=== PATIENT | female | born 1955 | race Caucasian/White ===

== ENCOUNTER 2016-12-31 12:32 | Emergency (ER) | payer OTHER ==
[2016-12-31] MEDS ORDERED: SODIUM CHLORIDE 0.9% 1,000 ML IV ONE (14:35)
[2016-12-31] MEDS ORDERED: LACTATED RINGERS 1,000 ML IV STA (14:35)
[2016-12-31] MEDS ORDERED: KETOROLAC 60 MG/2 ML VIAL IVP STA (15:57)
[2016-12-31] MEDS ORDERED: KETOROLAC 30 MG/ML VIAL ONE (15:57)
[2016-12-31] MEDS ORDERED: DOXYCYCLINE 100 MG TABLET PO STA (16:11)
[2016-12-31] MEDS ORDERED: DOXYCYCLINE 100 MG TABLET PO ONE (16:15)
[2016-12-31] MEDS ORDERED: HYDROcod/ACETAM 5/325 MG TABLET PO STA (17:10)
[2016-12-31] MEDS ORDERED: HYDROcod/ACETAM 5/325 MG TABLET ONE (17:12)
== END 2016-12-31 17:28 | disposition home or self-care (01) ==
DX: J18.9 Pneumonia, unspecified organism (principal); E86.0 Dehydration; B34.9 Viral infection, unspecified; R55 Syncope and collapse
CPT/HCPCS: 71020; 80053; 83690; 93005; 93010; 96361; 96374; 99283; 99284; A9270

== ENCOUNTER 2018-11-10 17:25 | Emergency (ER) | payer OTHER ==
--- NOTE | 2018-11-10 18:42 | XRAY Report ---
Reason: pain Procedure Date: 11/10/2018 Accession Number: [id number] / [id number] Procedure: XR - Knee 3 View RT CPT Code: FULL RESULT: EXAM: RIGHT KNEE RADIOGRAPHY EXAM DATE: 11/10/2018 06:00 PM. CLINICAL HISTORY: Pain. COMPARISON: None. TECHNIQUE: 3 views. FINDINGS: Bones: Normal. No fractures or bone lesions. Joints: Normal. No effusion. No subluxations. Soft Tissues: Normal. No soft tissue swelling. IMPRESSION: No evidence of fracture or dislocation. RADIA
--- NOTE | 2018-11-10 19:38 | ED Physician Documentation ---
PD HPI LOWER EXT INJURY - Stated complaint Stated Complaint: R KNEE PX - Chief complaint Chief Complaint: Ext Problem - History obtained from History obtained from: Patient - History of Present Illness PD HPI LOW EXT INJURY LOCATION: Right, Knee Type of injury: No: Fall, Twist, Penetrating / stab / GSW Timing - onset: How many days ago (3) Timing - duration: Days (3) Timing - details: Gradual onset, Waxing and waning Worsened by: Moving, Palpating Associated symptoms: Swelling. 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 HEENT: None Psych: None Musculoskeletal: Gout (in big toes in the past, never in knee) Derm: None - Past Surgical History Past Surgical History: Yes Ortho: Carpal Tunnel surgery - Present Medications Home Medications: Ambulatory Orders Medication Instructions Recorded Confirmed Doxycycline Hyclate 100 mg PO BID #14 tablet 12/31/16 Dexamethasone [Decadron] 4 mg PO DAILY #5 tablet 11/10/18 Naproxen 500 mg PO BID #20 tablet 11/10/18 Oxycodone HCl/Acetaminophen 1 - 2 each PO Q6H PRN #14 tablet 11/10/18 [Percocet 5-325 mg Tablet] - Allergies Allergies/Adverse Reactions: Allergies Allergy/AdvReac Type Severity Reaction Status Date / Time No Known Drug Allergies Allergy Verified 11/10/18 17:40 - Social History Does the pt smoke?: No Smoking Status: Never smoker Does the pt drink ETOH?: No Does the pt have substance abuse?: No - Immunizations Immunizations are current?: Yes - POLST Patient has POLST: No PD ED PE NORMAL - Vitals Vital signs reviewed: Yes - General General: Alert and oriented X 3, Well developed/nourished, Other (seems in pain with knee movement and touching) - Back Back: No CVA TTP, No spinal TTP - Derm Derm: Normal color, Warm and dry - Extremities Extremities: No calf tenderness / cord, Other (has tenderness at medial right knee mainly with some effusion. Tender medial and posterior knee. Not tender in mid to lower calf. Mild edmea in both legs, which she says is common. Normal pulses and cap refill. ) Results - Vitals Vitals: Vital Signs - 24 hr 11/10/18 11/10/18 11/10/18 17:36 19:12 20:01 Temperature 36.3 C L Heart Rate 89 83 Respiratory 18 16 17 Rate Blood Pressure 153/85 H 134/73 H O2 Saturation 98 99 11/10/18 11/10/18 21:25 23:02 Temperature Heart Rate 78 Respiratory 16 17 Rate Blood Pressure 129/72 O2 Saturation 98 Oxygen O2 Source Room air - Rads (name of study) duplex leg Radiology: Prelim report reviewed (no DVT) knee xray Radiology: Prelim report reviewed (effusion; no fractures) PD MEDICAL DECISION MAKING - ED course Complexity details: reviewed results (no DVT, and normal xray. Not red/hot and no sores, so doubt infectious. Very tender and history of gout in toes, so presume gout in knee. ), considered differential, d/w patient Departure - Departure Disposition: 01 Home, Self Care Clinical Impression: Right knee pain Qualifiers: Chronicity: acute Qualified Code(s): M25.561 - Pain in right knee Acute gout Qualifiers: Gout site: knee Gout etiology: unspecified cause Laterality: right Qualified Code(s): M10.9 - Gout, unspecified Condition: Stable Record reviewed to determine appropriate education?: Yes Instructions: ED Arthritis Gout Prescriptions: Dexamethasone [Decadron] 4 mg PO DAILY #5 tablet Naproxen 500 mg PO BID #20 tablet Oxycodone HCl/Acetaminophen [Percocet 5-325 mg Tablet] 1 - 2 each PO Q6H PRN #14 tablet PRN Reason: pain Comments: Your ultrasound did not show any signs of clots. There shows an incidental small cyst called a Metz's cyst. This would not really be the cause of your pain. It sounds like a gout attack of the knee given the degree of tenderness and pain. Use naproxen and Decadron anti-inflammatories over the next several days. Add Percocet if needed for pain. Use the cane as needed to decrease some of the pressure on the knee. Recheck if not improving over the next several days. Discharge Date/Time: 11/10/18 23:03
[2018-11-10] MEDS ORDERED: IBUPROFEN 600 MG TABLET PO STA (20:09)
[2018-11-10] MEDS ORDERED: oxyCODONE 5 MG TABLET PO STA (20:09)
[2018-11-10] MEDS ORDERED: DEXAMETHASONE 10 MG/ML VIAL PO STA (20:09)
[2018-11-10] MEDS ORDERED: CHERRY SYRUP 10 ML UDC PO ONE (20:15)
--- NOTE | 2018-11-10 21:58 | Ultrasound Report ---
Reason: right knee pain and lower leg swelling Procedure Date: 11/10/2018 Accession Number: [id number] / [id number] Procedure: US - Duplex Ext Veins Right CPT Code: FULL RESULT: EXAM: RIGHT LOWER EXTREMITY VENOUS ULTRASOUND EXAM DATE: 11/10/2018 09:00 PM. CLINICAL HISTORY: Right knee pain and lower leg swelling. COMPARISON: None. TECHNIQUE: Real-time sonographic vascular imaging was performed by the radio interference expert through the lower extremity utilizing both color-flow and Doppler spectral analysis. Multiple business office representative static images were saved for review. FINDINGS: Common Femoral Vein (CFV): Normal. CFV-GSV Junction: Normal. Profunda Femoral Vein (PFV): Normal. Femoral Vein (FV) Prox: Normal. Femoral Vein (FV) Mid: Normal. Femoral Vein (FV) Dist: Normal. Popliteal Vein: Normal. Posterior Tibial Veins: Normal. Peroneal Veins: Normal. Other: Medial fluid pocket at the knee 3.5 x 0.3 x 0.7 cm. IMPRESSION: 1. No evidence for deep venous thrombosis. 2. Metz's cyst. RADIA
[2018-11-10 23:02] VITALS: BP 129/72
== END 2018-11-10 23:03 | disposition home or self-care (01) ==
LOC: ED 17:25
DX: M25.561 Pain in right knee (principal); M10.9 Gout, unspecified; M71.21 Synovial cyst of popliteal space [Baker], right knee
CPT/HCPCS: 73562; 93971; 99283; A9270

== ENCOUNTER 2019-06-22 05:52 | Emergency (ER) | payer OTHER ==
[2019-06-22 06:02] VITALS: BP 148/79
--- NOTE | 2019-06-22 06:07 | ED Physician Documentation ---
History of Present Illness - Stated complaint Stated Complaint: R SHOULDER PAIN - Chief complaint Chief Complaint: Ext Problem - History obtained from History obtained from: Patient - History of Present Illness Timing: How many weeks ago (1) Improved by: rest Worsened by: movement, particularly abduction right shoulder - Additonal information Additional information: c/o atraumatic right shoulder pain x 1 week, gradually progressive and distinctly worse with movement. denies h/o similar symptoms Review of Systems Skin: denies: Rash Musculoskeletal: reports: Joint pain. 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 HEENT: None Psych: None Musculoskeletal: Gout (in big toes in the past, never in knee) Derm: None - Past Surgical History Past Surgical History: Yes Ortho: Carpal Tunnel surgery - Present Medications Home Medications: Ambulatory Orders Medication Instructions Recorded Confirmed Oxycodone HCl/Acetaminophen 1 - 2 each PO Q6H PRN #14 tablet 06/22/19 [Percocet 5-325 mg Tablet] - Allergies Allergies/Adverse Reactions: Allergies Allergy/AdvReac Type Severity Reaction Status Date / Time No Known Drug Allergies Allergy Verified 06/22/19 06:01 - Social History Does the pt smoke?: No Smoking Status: Never smoker Does the pt drink ETOH?: No Does the pt have substance abuse?: No - Immunizations Immunizations are current?: Yes - POLST Patient has POLST: No PD ED PE NORMAL - Vitals Vital signs reviewed: Yes - General General: Alert and oriented X 3, No acute distress (NAD at rest, obvious painful discomfort with right shoulder ROM, mostly with abduction and external rotation), Well developed/nourished - Neck Neck: Supple, no meningeal sign, No bony TTP - Derm Derm: No rash - Extremities Extremities: No edema, Other (TTP anterior right shoulder joint without swelling, erythema, rash or abnormal warmth to touch) - Neuro Neuro: No motor deficit, No sensory deficit Results - Vitals Vitals: Vital Signs - 24 hr 06/22/19 05:58 Temperature 36.0 C L Heart Rate 87 Respiratory 20 Rate Blood Pressure 148/79 H O2 Saturation 98 Oxygen O2 Source Room air PD MEDICAL DECISION MAKING - ED course Complexity details: considered differential, d/w patient Departure - Departure Disposition: 01 Home, Self Care Clinical Impression: Shoulder pain, right Condition: Good Instructions: ED Shoulder Pain [facility] Follow-Up: KARAN Blanca [Provider Group] Prescriptions: Oxycodone HCl/Acetaminophen [Percocet 5-325 mg Tablet] 1 - 2 each PO Q6H PRN #14 tablet PRN Reason: pain Discharge Date/Time: 06/22/19 06:47
[2019-06-22] MEDS ORDERED: oxyCODONE/ACET 5/325 Prepack 4 PO STA (06:34)
== END 2019-06-22 06:47 | disposition home or self-care (01) ==
LOC: ED 05:52
DX: M25.511 Pain in right shoulder (principal)
CPT/HCPCS: 99282; 99283

== ENCOUNTER 2020-01-21 07:44 | Outpatient (CLI) | payer OTHER | END 2020-01-21 07:45 | disposition home or self-care (01) | LOC: DI 07:44 | PROVIDERS: ATTEND General Practice | DX: R53.1 Weakness (principal); R60.0 Localized edema | CPT/HCPCS: 93306 ==

== ENCOUNTER 2021-09-18 10:22 | Outpatient (CLI) | payer OTHER ==
[2021-09-18 12:59] LABS: BASOPHILS % (AUTO) 0.3 %; LYMPHOCYTES % (AUTO) 9.5 %; MEAN CORPUSCULAR HEMOGLOBIN 28.7 pg (27.0-31.0); MEAN CORPUSCULAR HGB CONC 33.3 g/dL (32.0-36.0); MEAN CORPUSCULAR VOLUME 86.2 fL (81.0-99.0); MEAN PLATELET VOLUME 10.7 fL (7.9-10.8); MONOCYTES % (AUTO) 13.2 %; NEUTROPHILS % (AUTO) 76.4 %; PLT - PLATELET COUNT 38 10^3/uL (130-450); RED BLOOD COUNT 3.48 10^6/uL (4.20-5.40); WHITE BLOOD COUNT 3.2 x10^3/uL (4.8-10.8)
[2021-09-18 13:05] LABS: ABNORMAL LYMPHS % (MANUAL) 0 %
[2021-09-18 14:07] LABS: BAND NEUTROPHILS % (MANUAL) 1 %; LYMPHOCYTES # (MANUAL) 0.1 10^3/uL (1.5-3.5); LYMPHOCYTES % (MANUAL) 3 %; METAMYELOCYTES % (MANUAL) 1 %; MONOCYTES # (MANUAL) 0.5 10^3/uL (0.0-1.0); NEUTROPHILS # (MANUAL) 2.6 10^3/uL (1.5-6.6); REACTIVE LYMPHS % (MANUAL) 1 %
[2021-09-18 14:12] LABS: DIFFERENTIAL COMMENT MANUAL DIFFERENTIAL; PLATELET ESTIMATE, MANUAL DECREASED (<130,000) (NORMAL); PLATELET MORPHOLOGY NORMAL APPEARANCE (NORMAL)
== END 2021-09-18 10:23 | disposition home or self-care (01) ==
LOC: LAB.N 10:22
PROVIDERS: ATTEND Internal Medicine
DX: C92.00 Acute myeloblastic leukemia, not having achieved remission (principal)
CPT/HCPCS: 36415; 85025

== ENCOUNTER 2021-09-24 11:33 | Emergency (ER) | payer OTHER ==
[2021-09-24 11:38] VITALS: BP 126/77
--- NOTE | 2021-09-24 11:45 | ED Physician Documentation ---
History of Present Illness - Stated complaint Stated Complaint: SALINE FLUSH NEEDED - Chief complaint Chief Complaint: General - Additonal information Additional information: Pt is visiting the area and has a Schmitz port. She ran out of flushes and is strictly here for port flush. She has no concerns today, no fever, no symptoms. 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 HEENT: None Psych: None Musculoskeletal: Gout (in big toes in the past, never in knee) Derm: None - Past Surgical History Past Surgical History: Yes Ortho: Carpal Tunnel surgery - Present Medications Home Medications: Ambulatory Orders Medication Instructions Recorded Confirmed Oxycodone HCl/Acetaminophen 1 - 2 each PO Q6H PRN #14 tablet 06/22/19 [Percocet 5-325 mg Tablet] - Allergies Allergies/Adverse Reactions: Allergies Allergy/AdvReac Type Severity Reaction Status Date / Time No Known Drug Allergies Allergy Verified 09/24/21 11:38 - Social History Does the pt smoke?: No Smoking Status: Never smoker Does the pt drink ETOH?: No Does the pt have substance abuse?: No - Immunizations Immunizations are current?: Yes - POLST Patient has POLST: No PD ED PE NORMAL - Vitals Vital signs reviewed: Yes - General General: Alert and oriented X 3, No acute distress, Well developed/nourished - HEENT HEENT: Atraumatic, Moist mucous membranes - Cardiac Cardiac: RRR, No murmur - Respiratory Respiratory: No respiratory distress, Clear bilaterally - Derm Derm: Normal color, Warm and dry - Neuro Neuro: Alert and oriented X 3 Eye Opening: Spontaneous Motor: Obeys Commands Verbal: Oriented GCS Score: 15 Results - Vitals Vitals: Vital Signs - 24 hr 09/24/21 11:35 Temperature 36.9 C Heart Rate 99 Respiratory 16 Rate Blood Pressure 126/77 O2 Saturation 100 Oxygen O2 Source Room air PD MEDICAL DECISION MAKING - ED course Complexity details: d/w patient ED course: Pt presented for a flush of her schmitz port. She had no other concerns today. The RN was able to manage the port and provide patient with supplies for the duration of her stay. She was advised to return if any concerns or other problems w/ port. Departure - Departure Disposition: 01 Home, Self Care Clinical Impression: Encounter for medical screening examination Condition: Good Comments: You presented to have your Schmitz port flushed. You had no other concerns today. Please continue management per your regular schedule. We are happy to see you any time if you encounter any other issues with your port or new concerns.
== END 2021-09-24 11:46 | disposition home or self-care (01) ==
LOC: ED 11:33
DX: Z45.2 Encounter for adjustment and management of vascular access device (principal)
CPT/HCPCS: 99281

== ENCOUNTER 2022-10-23 11:15 | Emergency (ER) | payer MEDICARE, OTHER ==
[2022-10-23 11:27] VITALS: BP 137/71
--- NOTE | 2022-10-23 11:47 | XRAY Report ---
PROCEDURE: Finger(s) LT INDICATIONS: Trauma TECHNIQUE: AP hand, 3 views of the fourth finger(s) acquired. COMPARISON: None FINDINGS: Bones: Linear lucency is noted within the distal tuft of the fourth distal phalanx. This is best seen on lateral view. Soft tissues: No suspicious soft tissue calcifications. IMPRESSION: Nondisplaced fourth distal tuft fracture. Reviewed by: Talisha Heredia MD on 10/23/2022 11:46 AM [facility] Approved by: Talisha Heredia MD on 10/23/2022 11:46 AM PST Station ID: [id number]
--- NOTE | 2022-10-23 11:56 | ED Physician Documentation ---
PD HPI UPPER EXT INJURY - Stated complaint Stated Complaint: FINGER INJ - Chief complaint Chief Complaint: Trauma Ext - History obtained from History obtained from: Patient - History of Present Illness Location: Left - Additonal information Additional information: [id number] woman was working with a large sewing machine and the door slammed shut on her left fourth finger with significant initial pain but better now. No other injuries. This happened around 10 AM this morning. 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 HEENT: None Psych: None Musculoskeletal: Gout Derm: None - Past Surgical History Past Surgical History: Yes Ortho: Carpal Tunnel surgery - Present Medications Home Medications: Ambulatory Orders Medication Instructions Recorded Confirmed Acyclovir 800 mg PO BID 07/03/22 10/16/22 Calcium Citrate/Vitamin D3 1 tab PO DAILY 07/03/22 10/16/22 [Citracal + D Maximum Caplet] Mirtazapine [Remeron] 15 mg PO DAILY 07/03/22 10/16/22 Cholecalciferol [Vitamin D3] 25 mcg PO DAILY 07/04/22 10/16/22 Paxton-3 Fatty Acids/Fish Oil 1,000 mg PO DAILY 07/04/22 10/16/22 [Paxton-3 Fish Oil 1,000 mg Sfgl] - Allergies Allergies/Adverse Reactions: Allergies Allergy/AdvReac Type Severity Reaction Status Date / Time No Known Drug Allergies Allergy Verified 10/23/22 11:27 - Social History Does the pt smoke?: No Smoking Status: Never smoker Does the pt drink ETOH?: No Does the pt have substance abuse?: No - Immunizations Immunizations are current?: Yes - POLST Patient has POLST: No PD ED PE NORMAL - Vitals Vital signs reviewed: Yes - General General: Alert and oriented X 3, No acute distress - Extremities Extremities: Other (Tender and swollen about the PIP of the left fourth digit with limited range of motion due to pain but normal neurovascular function at the tip.) - Neuro Neuro: Alert and oriented X 3, Normal speech Results - Vitals Vitals: Vital Signs - 24 hr 10/23/22 11:23 Temperature 36.7 C Heart Rate 74 Respiratory 16 Rate Blood Pressure 137/71 H O2 Saturation 100 Oxygen O2 Source Room air - Rads (name of study) L 4th finger XR Radiology: EMP read contemporaneously (see MDM) PD MEDICAL DECISION MAKING - ED course ED course: All of the tenderness is about the PIP of the fourth finger. She does not have any tenderness at the tip/tuft. On my view of the x-ray I felt the tuft looked pretty normal, may be with an old fracture. She does not recall injuring it before but agrees that that is not where the pain is. As such this is treated more as a sprain/crush injury of the PIP as opposed to the tuft fracture noted on x-ray. Patient will splinted if it hurts after a few days but right now feels okay with it unsplinted. Departure - Departure Disposition: 01 Home, Self Care Clinical Impression: Crushing injury of finger of left hand Condition: Good Record reviewed to determine appropriate education?: Yes Instructions: ED Sprain Finger Comments: Tylenol as needed for pain, ice as needed. Follow-up with your doctor in a week if not better, return for new or worsening symptoms. Discharge Date/Time: 10/23/22 12:00
== END 2022-10-23 12:00 | disposition home or self-care (01) ==
LOC: ED 11:15
DX: S67.195A Crushing injury of left ring finger, initial encounter (principal); W23.0XXA Caught, crushed, jammed, or pinched between moving objects, initial encounter; Y93.D2 Activity, sewing
CPT/HCPCS: 99282; 99283

== ENCOUNTER 2023-08-10 08:00 | Outpatient (CLI) | payer MEDICARE, OTHER ==
[2023-08-10 19:39] LABS: CALCIUM 9.3 mg/dL (8.5-10.3); CREATININE 0.7 mg/dL (0.6-1.3); POTASSIUM 3.8 mmol/L (3.5-4.5)
== END 2023-08-10 23:59 | disposition home or self-care (01) ==
LOC: LAB.N 08:00
PROVIDERS: ATTEND Physician Assistant Medical
DX: U07.1 COVID-19 (principal)
CPT/HCPCS: 36415; 80048

== ENCOUNTER 2023-08-16 13:01 | Emergency (ER) | payer MEDICARE, OTHER ==
[2023-08-16 13:25] VITALS: BP 133/79; O2SAT 97
--- NOTE | 2023-08-16 13:53 | ED Physician Documentation ---
History of Present Illness - Stated complaint Stated Complaint: SOA,FATIGUE - Chief complaint Chief Complaint: Resp - Additonal information Additional information: 68-year-old female presents emergency department for evaluation of persistent fatigue and shortness of air. She reports that she was diagnosed with COVID last week and just finished a 5-day course of Paxlovid. Despite this she is extremely fatigued and feels short of air. She had no fevers. She does have a dry cough. Denies chest pain. No leg swelling. Patient reports that she had multiple episodes of diarrhea this last week but no vomiting. Now keeping p.o.'s down but does endorse anorexia. Her caregiver/friend with her is concerned because she does have a history of leukemia for which she is in recovery/remission. Patient is denying any chest pain. No history of hypertension or diabetes. Takes no prescribed medications with the exception of daily acyclovir. 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 HEENT: None Psych: None Musculoskeletal: Gout Derm: None - Past Surgical History Past Surgical History: Yes Ortho: Carpal Tunnel surgery - Present Medications Home Medications: Ambulatory Orders Medication Instructions Recorded Confirmed Acyclovir 800 mg PO BID 07/03/22 08/16/23 - Allergies Allergies/Adverse Reactions: Allergies Allergy/AdvReac Type Severity Reaction Status Date / Time No Known Drug Allergies Allergy Verified 10/23/22 11:27 - Social History Does the pt smoke?: No Smoking Status: Never smoker Does the pt drink ETOH?: No Does the pt have substance abuse?: No - Immunizations Immunizations are current?: Yes - POLST Patient has POLST: No PD ED PE NORMAL - General General: Alert and oriented X 3, No acute distress - HEENT HEENT: PERRL - Cardiac Cardiac: RRR, No murmur, Strong equal pulses, Other (No lower extremity swelling) - Respiratory Respiratory: No respiratory distress, Clear bilaterally - Abdomen Abdomen: Normal bowel sounds, Soft Results - Vitals Vitals: Vital Signs - 24 hr 08/16/23 13:20 Temperature 36.2 C L Heart Rate 90 Respiratory 20 Rate Blood Pressure 133/79 H O2 Saturation 97 Oxygen O2 Source Room air - Labs Labs: Laboratory Tests 08/16/23 08/16/23 14:11 14:11 WBC 7.8 RBC 5.37 Hgb 16.5 H Hct 48.6 H MCV 90.5 MCH 30.7 MCHC 34.0 RDW 13.8 Plt Count 198 MPV 9.5 Neut # (Auto) 3.6 Lymph # (Auto) 3.5 [place] # (Auto) 0.5 Eos # (Auto) 0.2 Baso # (Auto) 0.0 Absolute Nucleated RBC 0.00 Nucleated RBC % 0.0 Sodium 138 Potassium 3.4 L Chloride 106 Carbon Dioxide 23 Anion Gap 9.0 BUN 29 H Creatinine 0.9 Estimated GFR (MDRD) 63 L Glucose 109 H Calcium 9.3 Total Bilirubin 0.5 AST 27 ALT 38 Alkaline Phosphatase 59 Total Protein 6.0 L Albumin 3.9 Globulin 2.1 Albumin/Globulin Ratio 1.9 Lipase 56 - Rads (name of study) cxr Relevant Findings:: Final report received (No acute cardiopulmonary process) PD Medical Decision Making - ED course Complexity details: reviewed results, re-evaluated patient, considered differential, d/w patient ED course: 68-year-old female presents emergency department for evaluation of dyspnea and worsening fatigue. She has a history of AML. She did receive a stem cell transplant in December 2021 and is currently in remission. Patient developed COVID-19 early last week and did complete a 5-day course of Paxlovid. Despite this she has continued to have a dry cough and has been persistently fatigued and short of air. States that she has some anorexia and is having difficulty taking liquids. She has also had some diarrhea. On presentation the emergency department she is alert and well-appearing though soft-spoken. Afebrile with a temperature 36.2. Heart rate is 90. Blood pressure 133/79. Saturating 97% on room air. A chest x-ray is interpreted by the radiologist showed no acute cardiopulmonary process. The patient and caregiver with her were concerned that she could be excessively fatigued and were requesting IV fluids. I did obtain a CBC and electrolytes. Per my interpretation no leukocytosis. White count is 7.8. Hemoglobin is 16.5 slightly higher than her typical range of 15.2. Her electrolytes show a mild hypokalemia with potassium of 3.4. This likely reflects the diarrhea of the last week. BUN slightly elevated at 29 though not much different than her baseline which has been as high as 33. Clinically the patient has no signs of congestive heart failure. Given the lack of chest pain low suspicion for ACS. With the above laboratory values this is not consistent with a return of leukemia. By Wells criteria low risk for PE. Given recent COVID-19 infection deferred D-dimer I did give the patient a liter of IV fluids and on reevaluation states she is feeling better and would like to be discharged home. I discussed with her that COVID-19 infection may cause fairly significant fatigue making it difficult for her to feel better over the next several weeks. We discussed the usual emergent return precautions such as severe dyspnea, fevers, uncontrolled nausea, vomiting or chest pain Departure - Departure Disposition: Home, Self Care Clinical Impression: AML (acute myeloid leukemia) in remission, Shortness of breath, History of COVI D-19 Fatigue Qualifiers: Fatigue type: unspecified Qualified Code(s): R53.83 - Other fatigue Condition: Stable Record reviewed to determine appropriate education?: Yes Comments: [place] You are seen today in the emergency department for persistent fatigue, anorexia and shortness of air. You do have a history of AML in remission. It remains in remission based on your labs. You also recently had COVID-19 infection. Your chest x-ray today is normal. Your labs today show no elevation in white count. Your hemoglobin is normal. Your electrolytes show a mildly low potassium of 3.4. We did give you some extra potassium here in the ER. This is likely due to the diarrhea you had last week. Your labs do not otherwise indicate significant dehydration. On exam there is nothing to suggest heart failure, heart attack, or a pulmonary embolism. I suspect the majority of your symptoms are simply from the COVID-19 infection, which recently is causing significant fatigue even in otherwise healthy people. I encourage you to take frequent sips of water and small frequent bites of food in order to help maintain hydration. Frequently taking small bites of food will also improve your anorexia so that you are able to begin eating better. If you find that your symptoms are worsening, you develop fevers, have sudden severe chest pain, severe difficulty breathing, have swelling of your lower extremities or any other emergent concerns please do not hesitate to return to the ER. Forms: PCP List
[2023-08-16] MEDS ORDERED: SODIUM CHLORIDE 0.9% 1,000 ML IV STA (14:00)
--- NOTE | 2023-08-16 14:12 | XRAY Report ---
PROCEDURE: Chest 1 View X-Ray INDICATIONS: soa TECHNIQUE: One view of the chest was acquired. COMPARISON: None. FINDINGS: Surgical changes and devices: None. Lungs and pleura: No pleural effusions or pneumothorax. Lungs are clear. Mediastinum: Mediastinal contours appear normal. Heart size is normal. Bones and chest wall: No suspicious bony lesions. Overlying soft tissues appear unremarkable. IMPRESSION: No acute cardiopulmonary process. Reviewed by: Andrew Flannery MD on 08/16/2023 2:11 PM PDT Approved by: Andrew Flannery MD on 08/16/2023 2:11 PM PDT Station ID: [id number]
[2023-08-16 14:14] LABS: BASOPHILS % (AUTO) 0.3 %; EOSINOPHILS # (AUTO) 0.2 10^3/uL (0.0-0.7); EOSINOPHILS % (AUTO) 2.3 %; HCT - HEMATOCRIT 48.6 % (37.0-47.0); HGB - HEMOGLOBIN 16.5 g/dL (12.0-16.0); LYMPHOCYTES # (AUTO) 3.5 10^3/uL (1.5-3.5); LYMPHOCYTES % (AUTO) 45.4 %; MEAN CORPUSCULAR HEMOGLOBIN 30.7 pg (27.0-31.0); MEAN CORPUSCULAR VOLUME 90.5 fL (81.0-99.0); MEAN PLATELET VOLUME 9.5 fL (7.9-10.8); MONOCYTES # (AUTO) 0.5 10^3/uL (0.0-1.0); NEUTROPHILS # (AUTO) 3.6 10^3/uL (1.5-6.6); NEUTROPHILS % (AUTO) 45.7 %; PLT - PLATELET COUNT 198 10^3/uL (130-450); RED BLOOD COUNT 5.37 10^6/uL (4.20-5.40); RED CELL DISTRIBUTION WIDTH 13.8 % (12.0-15.0); WHITE BLOOD COUNT 7.8 x10^3/uL (4.8-10.8)
[2023-08-16 14:33] LABS: ALBUMIN 3.9 g/dL (3.2-5.5); ALBUMIN/GLOBULIN RATIO 1.9 (1.0-2.2); BILIRUBIN,TOTAL 0.5 mg/dL (0.2-1.0); CALCIUM 9.3 mg/dL (8.5-10.3); CREATININE 0.9 mg/dL (0.6-1.3); POTASSIUM 3.4 mmol/L (3.5-4.5)
[2023-08-16] MEDS ORDERED: POTASSIUM BICARB 25 MEQ TABLET PO STA (15:01)
== END 2023-08-16 16:41 | disposition home or self-care (01) ==
LOC: ED 13:01
DX: R53.83 Other fatigue (principal); R06.02 Shortness of breath; Z86.16 Personal history of COVID-19; C92.01 Acute myeloblastic leukemia, in remission; E87.6 Hypokalemia
CPT/HCPCS: 36415; 71045; 80053; 83690; 85025; 96360; 99284; A9270

== ENCOUNTER 2024-06-09 12:55 | Outpatient (CLI) | payer MEDICARE, OTHER | END 2024-06-09 12:56 | disposition home or self-care (01) | LOC: RT 12:55 | DX: Z53.9 Procedure and treatment not carried out, unspecified reason (principal) ==